=== PATIENT | female | born 1960 | race Two or more races ===

== ENCOUNTER 2025-02-11 16:01 | Emergency (ER) | payer OTHER, MEDICAID ==
[~2025-02-11] VITALS: Ht 170.2 cm; Wt 66.0 kg
--- NOTE | 2025-02-11 16:29 | ED.PDOC ---
HPI (NEURO) HPI Comments HPI Mandi 64 y.o female presents to the ED for a chief complaint of dizziness that started one week ago. Patient reports dizziness only presents on exertion/ambulation. patient denies any pain, fever, chills, chest pain, palpitations, or recent head injuries. Patient has no numbness or focal weaknesses. Risperidone Patient denies any allergies Vitals Temperature: 98.5 F Heart Rate:118 Blood pressure: 154/79 SPO2: 98% RA RR: 14 Past Medical History: COPD, HTN, Kidney disease, and Benign Brain tumor, bipolar Past Surgical History: Benign Brain tumor removal , 2002: DIZZINESS, 'LOSE MY BALANCE WHEN WALKING" HPI: Poor Historian. Dizziness episodes only when she ambulates for at least one-week. It is not able to describe it any further. Similar episodes in the past. Past Medical History: Past Surgical History: REVIEW OF SYSTEMS: CONSTITUTIONAL: Denies acute: fever, diaphoresis, chills, generalized weakness. HEAD: Denies acute: headache, photophobia Eyes: Denies acute: Double vision, vision loss, eye pain, eye discharge. EARS: Denies acute: tinnitus, hearing loss, ear discharge, ear pain, THROAT: Denies acute: sore throat, swelling, difficulty swallowing , pain with swallowing, change in voice. NECK: Denies acute: neck pain, neck swelling, stiff neck. HEART: Denies acute : chest pain, palpitations, LUNGS: Denies acute: SOB, wheezing, cough, hemoptysis ABDOMEN: Denies acute: abdominal pain, Nausea, Vomiting, diarrhea, melena , hematemesis, hematochezia SKIN: Denies acute: rash, redness, lesions, itchiness. EXTREMITIES: Denies acute: calf pain, numbness, tingling, weakness, denies pain in extremity. Denies acute: Low back pain. Neuro: Denies acute: focal neurological deficit, motor or sensory focal neurological deficit, tremors, seizure like activity, confusion, , change in mental status, loss of bowel or bladder function, cauda equina like symptoms. : Denies acute: dysuria, hematuria, flank pain, increase in urinary frequency. PSYCH: Denies acute: hallucination, suicidal ideation, homicidal ideation. FEMALE: Denies acute: abnormal vaginal bleeding, foul odor, unusual discharge. PHYSICAL EXAM: General: ----no----acute distress, awake and alert. Head: normocephalic, atraumatic. Neck: supple, trachea is midline, no swelling. Throat: Normal phonation. Eyes:, no erythema, no purulent discharge, no proptosis, no icterus. Heart: regular rate, regular rhythm, no significant murmur appreciated. Lungs: no apparent respiratory distress, Able to speak in full sentences. No wheezing, no rhonchi, no crackles. No stridors Clear to auscultation bilaterally. Abdomen: non tender to palpation, non distended, soft, no guarding, no rebound, + bowel sounds. Neuro: Awake, Alert, oriented to name, self, situation, follows commands GCS=15. Speech is normal. Skin: no petechia, no purpura, no cyanosis, non-pale, not jaundice. Lower extremities: --no - Pitting edema no deformity, no focal swelling, no calf TTP. Makes eye contact. moves all four extremities. Face: no apparent facial droop. Ambulating in the ED independently. PERRLA, EOM-I CN 2-12 are grossly intact, No nystagmus. No nuchal rigidity, Kernig's sign, Brudzinski's sign, no meningeal signs. 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 Was a procedure done?: No Differential Diagnosis (SZ) General Weakness: Anemia, CVA, Dehydration, Electrolyte imbalance, Encephalopathy, Guillain-[place], Hypoglycemia, Hypotension, Hypovolemia, Labyrinthitis, Meniere's disease, Myasthenia gravis, Myocardial infarction, Pulmonary embolus, Renal failure, Repiratory failure, TIA, VBI, Vertigo: central, Vertigo: peripheral, Vestibular neuronitis X-Ray, Labs, Meds, VS Vital Signs Date Time Temp Pulse Resp B/P (MAP) Pulse Ox O2 Delivery O2 Flow Rate FiO2 02/11/25 22:01 98.3 79 18 154/79 (104) 98 98.3 02/11/25 19:26 98.0 87 17 150/91 (110) 99 98.0 02/11/25 19:26 87 17 99 Room Air 02/11/25 16:33 98.5 118 14 154/79 (104) 98 98.5 Lab Test 02/11/25 21:16 02/11/25 17:27 02/11/25 16:37 Range/Units Lactic Acid Level 2.4 *H 2.7 *H 0.4-2.0 mmol/L Urine Color Light-yellow Yellow Urine Clarity Turbid H Clear Urine pH 5.5 5.0-9.0 Urine Specific [place] 1.009 1.001-1.035 Urine Protein 1+ H Negative Urine Ketones Negative Negative Urine Blood Trace H Negative /uL Urine Nitrite Negative Negative Urine Bilirubin Negative Negative Urine Urobilinogen Normal Negative mg/dL Urine Leukocyte Esterase 3+ Negative /uL Urine RBC 6 0 - 4 /hpf Urine Microscopic WBC 84 H 0-5 /HPF Urine Squamous Epithelial Cells Few <5 /hpf Urine Bacteria Many H None Seen /hpf Urine Glucose Normal Normal mg/dL White Blood Count 11.4 H 4.4-10.8 10^3/uL Red Blood Count 4.44 4.0-5.20 10^6/uL Hemoglobin 12.8 12.2-16.2 g/dL Hematocrit 38.3 36.0-46.0 % Mean Corpuscular Volume 86.3 80.0-100.0 fL Mean Corpuscular Hemoglobin 28.9 28.0-32.0 pg Mean Corpuscular Hemoglobin Concent 33.4 32.0-36.0 g/dL Red Cell Distribution Width 13.2 11.8-14.3 % Platelet Count 288 140-450 10^3/uL Mean Platelet Volume 8.8 6.9-10.8 fL Neutrophils (%) (Auto) 80.0 37.0-80.0 % Lymphocytes (%) (Auto) 13.3 10.0-50.0 % Monocytes (%) (Auto) 5.5 0.0-12.0 % Eosinophils (%) (Auto) 0.7 0.0-7.0 % Basophils (%) (Auto) 0.5 0.0-2.0 % Neutrophils # (Auto) 9.1 H 1.6-8.6 10 ^3/uL Lymphocytes # (Auto) 1.5 0.4-5.4 10 ^3/uL Monocytes # (Auto) 0.6 0-1.3 10 ^3/uL Eosinophils # (Auto) 0.1 0-0.8 10 ^3/uL Basophils # (Auto) 0.1 0-0.2 10 ^3/uL Nucleated Red Blood Cells 0.0 % Sodium Level 141 136-145 mmol/L Potassium Level 3.8 3.5-5.1 mmol/L Chloride Level 114 H 98-107 mmol/L Carbon Dioxide Level 16 L 20-31 mmol/L Anion Gap 11 5-15 Blood Urea Nitrogen 27 H 9-23 mg/dL Creatinine 1.87 H 0.550-1.02 mg/dL Glomerular Filtration Rate Calc 29 >90 mL/min BUN/Creatinine Ratio 14.4 10.0-20.0 Serum Glucose 232 H 74-106 mg/dL Calcium Level 9.4 8.7-10.4 mg/dL Total Bilirubin 0.3 0.2-1.0 mg/dL Aspartate Amino Transferase (AST) < 8 L 13-40 U/L Alanine Aminotransferase (ALT) 13 7-40 U/L Alkaline Phosphatase 99 46-116 U/L Troponin I High Sensitivity 8 </=34 ng/L Total Protein 6.9 5.7-8.2 g/dL Albumin 4.4 3.2-4.8 g/dL Current Medications Medications (Trade) Dose Ordered Sig/Fela Route Start Time Stop Time Status Last Admin Sodium Chloride 1,000 ml @ 1,000 mls/hr Q1H ONCE IV 02/11/25 18:15 02/11/25 19:14 DC 02/11/25 19:13 Ceftriaxone Sodium 50 ml @ 100 mls/hr ONCE ONCE IV 02/11/25 20:00 02/11/25 20:29 DC 02/11/25 20:22 Sodium Chloride 1,000 ml @ 1,000 mls/hr Q1H ONCE IV 02/11/25 20:00 02/11/25 20:59 DC 02/11/25 20:[address] [address] Ph: [phone] DIAGNOSTIC IMAGING Diagnostic Imaging Report : [id number] Signed PATIENT: JAMARCUS MENDOZA ACCT: [id number] UNIT: [id number] : 1960 LOC: ER ROOM / BED: / AGE / SEX: 64 / F ADM STATUS: REG ER SERVICE 1618 ORDERING PHYSICIAN: ALON MIMS DO PROCEDURE(s): HWOCT - HEAD WITHOUT CONTRAST REASON: DIZZINESS ORDER NUMBER(s): [id number], ACCESSION NUMBER(s): [id number] EXAM: CT HEAD WITHOUT CONTRAST HISTORY: DIZZINESS COMPARISON: None TECHNIQUE: Noncontrast axial CT images of the head were performed. Sagittal and coronal reformatted images were obtained. This CT exam was performed using 1 or more of the following dose reduction techniques: Automated exposure control, adjustment of the mA and/or kv according to patient size, or the use of iterative reconstruction techniques. Radiation Dose: CTDI volume is 56.89 mGy. Dose-length product is 1121.08 mGy*cm FINDINGS: There are postoperative changes of bilateral craniotomy. There is global brain atrophy. There is right frontal encephalomalacia. There are peripherally calcified extra-axial masses in the right frontal lobe measuring up to 3.5 cm axially (image 47, series 2) and left parietal lobe measuring up to 2.2 cm axially (image 52, series 2). There are thick dural calcifications anteriorly. No intracranial hemorrhage, midline shift, hydrocephalus, or evidence of acute large vessel infarct. Empty sella is incidentally noted. There is mild mucosal thickening of the left sphenoid sinus. The bilateral mastoid air cells and middle ear spaces are clear. There are old fractures of the bilateral lamina papyracea. No cranial fracture or scalp edema. IMPRESSION: 1. Postoperative changes of bilateral frontal craniotomy and right frontal lobe encephalomalacia. 2. Peripherally calcified extra-axial masses in the right frontal and parietal lobes as detailed above. It is uncertain if these may be due to old hematomas, meningiomas, or other etiology. Recommend neurosurgical consultation. 3. Old fractures of the bilateral orbital medial hall. 4. Empty sella. ATED BY: MARISA GUDINO MD DICTATED DATE/TIME: 02/11/251699 SIGNED BY: MARISA GUDINO MD SIGNED DATE/TIME: 02/11/251699 CC: Time of 1ST Reevaluation: 19:20 (As of this minute, urinalysis still pending. Patient has just started receiving fluids.) Reevaluation 1ST: Unchanged Time of 2ND Reevaluation: 20:52 (The case was discussed with the higher level of care [facility] ER team (HPI, physical exam, labs and diagnostic tests that were available at the time of disposition, ED course, treatment plan) on the phone. They agreed for us to transfer the patient to their ER for further evaluation and treatment for neurosurgical consultation. Dr. Luis. ) Patient Education/Counseling: Diagnosis, Treatment Family Education/Counseling: No Family Present Comments After the 2nd lactic acid returned elevated, patient received an additional 1 L of normal saline bolus. Patient was then transferred and we do not have a repeat lactic acid after the 2 L of normal saline. This was reported by the nurse to the receiving team. Patient presented with the above HPI.----dizziness--workup was initiated. patient was found with the above mentioned diagnosis. the following medications were ordered: please refer to order lists of meds and tests obtained by myself Dr. Mims. Patient ED course and VS have been stabilized. Patient has been reassessed in the ED and remained in a stable condition. Pertinent incidental findings were discussed with the patient and/or family. Patient/family voices understanding and is agreeable with plan. Patient has been observed in the ED adequate length of time to insure improvement/stability. Escalation of care considered: Consideration of escalation to observation or admission Patient was transferred to higher level of care for neurosurgical evaluation based on abnormal CT scan findings of the head. All the reports of any imaging studies that were ordered by myself were reviewed by myself. Departure 1 Departure Time of Disposition: 19:50 Impression: Primary Impression: UTI (urinary tract infection) Additional Impressions: Abnormal finding on CT scan Dizziness, nonspecific Disposition: 02 SHORT TERM HOSPITAL Admit to: Tele Condition: Guarded Discharged With: Self Critical Care Note Critical Care Time?: Yes (45 min-critical care time only) I personally scribed for ALON MIMS DO ([email or web address]) on 02/11/25 at 16:29. Electron ically submitted by Olivia Paz ([facility]). I personally scribed for ALON MIMS DO ([email or web address]) on 02/11/25 at 18:08. Electronically submitted by Olivia Paz ([facility]). I personally scribed for ALON MIMS DO ([email or web address]) on 02/11/25 at 21:26. Electronically submitted by James Bennett ([email or web address]). ALON MIMS DO Feb 11, 2025 16:29
[2025-02-11 16:54] LABS: Basophils # (auto) 0.1 10 ^3/uL (0-0.2); Basophils % (auto) 0.5 % (0.0-2.0); Eosinophils # (auto) 0.1 10 ^3/uL (0-0.8); Eosinophils % (auto) 0.7 % (0.0-7.0); Hematocrit 38.3 % (36.0-46.0); Hemoglobin 12.8 g/dL (12.2-16.2); Lymphocytes # (auto) 1.5 10 ^3/uL (0.4-5.4); Lymphocytes % (auto) 13.3 % (10.0-50.0); Mean Corpuscular Hemoglobin 28.9 pg (28.0-32.0); Mean Corpuscular Hgb Conc. 33.4 g/dL (32.0-36.0); Mean Corpuscular Volume 86.3 fL (80.0-100.0); Monocytes # (auto) 0.6 10 ^3/uL (0-1.3); Monocytes % (auto) 5.5 % (0.0-12.0); Neutrophils # (auto) 9.1 10 ^3/uL (1.6-8.6); Platelet Count (auto) 288 10^3/uL (140-450); Red Blood Cells 4.44 10^6/uL (4.0-5.20); Red Cell Distribution Width 13.2 % (11.8-14.3); White Blood Cell 11.4 10^3/uL (4.4-10.8)
--- NOTE | 2025-02-11 17:03 | DVH ---
EXAM: CT HEAD WITHOUT CONTRAST HISTORY: DIZZINESS COMPARISON: None TECHNIQUE: Noncontrast axial CT images of the head were performed. Sagittal and coronal reformatted i mages were obtained. This CT exam was performed using 1 or more of the following dose reduction techn iques: Automated exposure control, adjustment of the mA and/or kv according to patient size, or the u se of iterative reconstruction techniques. Radiation Dose: CTDI volume is 56.89 mGy. Dose-length product is 1121.08 mGy*cm FINDINGS: There are postoperative changes of bilateral craniotomy. There is global brain atrophy. There is righ t frontal encephalomalacia. There are peripherally calcified extra-axial masses in the right frontal lobe measuring up to 3.5 cm axially (image 47, series 2) and left parietal lobe measuring up to 2.2 cm axially (image 52, series 2). There are thick dural calcifications anteriorly. No intracranial hem orrhage, midline shift, hydrocephalus, or evidence of acute large vessel infarct. Empty sella is inci dentally noted. There is mild mucosal thickening of the left sphenoid sinus. The bilateral mastoid ai r cells and middle ear spaces are clear. There are old fractures of the bilateral lamina papyracea. N o cranial fracture or scalp edema. IMPRESSION: 1. Postoperative changes of bilateral frontal craniotomy and right frontal lobe encephalomalacia. 2. Peripherally calcified extra-axial masses in the right frontal and parietal lobes as detailed abov e. It is uncertain if these may be due to old hematomas, meningiomas, or other etiology. Recommend n eurosurgical consultation. 3. Old fractures of the bilateral orbital medial hall. 4. Empty sella.
[2025-02-11 17:09] LABS: Alanine Aminotransferase 13 U/L (7-40); Albumin 4.4 g/dL (3.2-4.8); Alkaline Phosphatase 99 U/L (46-116); Anion Gap 11 (5-15); BUN/Creatinine Ratio 14.4 (10.0-20.0); Calcium 9.4 mg/dL (8.7-10.4); Potassium 3.8 mmol/L (3.5-5.1); Sodium 141 mmol/L (136-145); Total Protein 6.9 g/dL (5.7-8.2)
[2025-02-11 17:10] LABS: Aspartate Aminotransferase < 8 U/L (13-40); Bilirubin, Total 0.3 mg/dL (0.2-1.0); Blood Urea Nitrogen 27 mg/dL (9-23); Carbon Dioxide 16 mmol/L (20-31); Chloride 114 mmol/L (98-107); Glucose 232 mg/dL (74-106)
[2025-02-11 17:19] LABS: Lactic Acid w/Reflex 2.7 mmol/L (0.4-2.0)
[2025-02-11] MEDS: SODIUM CHLORIDE 0.9% 1,000 ML IV ONE ×2 (19:13→20:21)
[2025-02-11 19:47] LABS: Urine Bacteria MANY /hpf (None Seen); Urine Blood TRACE /uL (Negative); Urine Clarity Turbid (Clear); Urine Color Light-Yellow (Yellow); Urine Protein, UAD 1+ (Negative); Urine Specific Gravity 1.009 (1.001-1.035); Urine Squamous Epithelial Cell FEW /hpf (<5); Urine Urobilinogen Normal (Negative); Urine WBC 84 /HPF (0-5); Urine pH 5.5 (5.0-9.0)
[2025-02-11] MEDS: cefTRIAXone 1GM/50ML D5W 50 ML IV ONE (20:22)
[2025-02-11 22:01] VITALS: BP 154/79; PULSE 79; RESP 18; TEMP 98.3; O2SAT 98
[2025-02-11] MEDS ORDERED: SODIUM CHLORIDE 0.9% 1,000 ML IV ONE (22:30)
== END 2025-02-11 19:34 | disposition short-term general hospital (02) ==
LOC: ER 16:04
DX: N39.0 Urinary tract infection, site not specified (principal); R42 Dizziness and giddiness; R93.0 Abnormal findings on diagnostic imaging of skull and head, not elsewhere classified; J44.9 Chronic obstructive pulmonary disease, unspecified; I12.9 Hypertensive chronic kidney disease with stage 1 through stage 4 chronic kidney disease, or unspecified chronic kidney disease; N18.9 Chronic kidney disease, unspecified; Z85.9 Personal history of malignant neoplasm, unspecified; Z98.890 Other specified postprocedural states
CPT/HCPCS: 36415; 70450; 80053; 81001; 83605; 84484; 85025; 96361; 96365; 99285; J0696; J7030

== ENCOUNTER 2025-03-13 17:38 | Emergency (ER) | payer OTHER, MEDICAID ==
[~2025-03-13] VITALS: Ht 170.2 cm; Wt 62.6 kg
[2025-03-13] MEDS: KETOROLAC TROMETH 60MG/2ML VIAL IM ONE (18:40)
--- NOTE | 2025-03-13 18:49 | DVH ---
CLINICAL INDICATION: Trauma/fall TECHNIQUE: XY R KNEE 3V XRAY Comparison: None FINDINGS/IMPRESSION: : There is no evidence of acute fracture or dislocation. Soft tissues are unremarkable. Osteopenia. Moderate tricompartmental degenerative change.
[2025-03-13] MEDS ORDERED: ACET500T58 PO (19:13)
[2025-03-13] MEDS ORDERED: IBUP-1454 PO (19:13)
--- NOTE | 2025-03-13 19:14 | ED.PDOC ---
Musculoskeletal HPI Comments This patient is a 64-year-old female who arrives to the ED today for evaluation of right knee pain concerns status post ground level fall approximately 6 hours ago. Patient states she was at home when she tripped outside and landed on her right knee. Patient denies any head trauma. Patient denies any blood loss. Patient is able to ambulate, but with difficulty. Vital signs were stable at arrival. Chief Complaint: Lower Extremity Time Seen by MD: 17:51 Primary Care Provider: UNKNOWN Reviewed Notes: Nurses Notes Allergies: Coded Allergies: NO KNOWN ALLERGIES (Unverified , 02/11/25) Information Source: Patient Mode of Arrival: Ambulatory Location: Right Extremity Location: Knee Timing: Hours Prehospital treatment: None Severity: Moderate Able to Move Extremity: Yes Bear Weight: Limited Pain: Moderate Hand Dominance: Right Mechanism: Blunt Trauma Circumstances: Fall Onset of Symptoms: After Trauma Symptoms: Swelling, Pain DVT Risk Factors: NONE Past Medical History PAST MEDICAL HISTORY: Cancer, CKF, COPD, HTN 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 Family History Family History: Reviewed,noncontributory to illness Social History Smoker: Cigarettes, Greater Than 1 Pack/Day Alcohol: Denies ETOH Use Drugs: Denies Drug Use Lives In: Home Constitutional: denies: chills, diaphoresis, fatigue, fever, malaise, sweats, weakness, others EENTM: denies: blurred vision, double vision, ear bleeding, ear discharge, ear drainage, ear pain, ear ringing, eye pain, eye redness, hearing loss, mouth pain, mouth swelling, nasal discharge, nose bleeding, nose congestion, nose pain, photophobia, tearing, throat pain, throat swelling, voice changes, others Respiratory: denies: cough, hemoptysis, orthopnea, SOB at rest, shortness of breath, SOB with excertion, stridor, wheezing, others Cardiovascular: denies: chest pain, dizzy spells, diaphoresis, Dyspnea on exertion, edema, irregular heart beat, left arm pain, lightheadedness, palpitations, PND, syncope, others Gastrointestinal: denies: abdomen distended, abdominal pain, blood streaked bowels, constipated, diarrhea, dysphagia, difficulty swallowing, hematemesis, melena, nausea, poor appetite, poor fluid intake, rectal bleeding, rectal pain, vomiting, others Genitourinary: denies: abnormal vagina bleeding, burning, dyspareunia, dysuria, flank pain, frequency, hematuria, incontinence, pain, , vagina discharge, urgency, others Neurological: denies: dizziness, fainting, headache, left sided numbness, left sided weakness, numbness, paresthesia, pre-existing deficit, right sided numbness, right sided weakness, seizure, speech problems, tingling, tremors, weakness, others Musculoskeletal: reports: others (Right knee pain); denies: back pain, gout, joint pain, joint swelling, muscle pain, muscle stiffness, neck pain Integumetry: denies: bruises, change in color, change in hair/nails, dryness, laceration, lesions, lumps, rash, wounds, others Allergic/Immunocompromised: denies: Difficulty Healing, Frequent Infections, Hives, Itching, others Hematologic/Lymphatic: denies: anemia, blood clots, easy bleeding, easy bruising, swollen glands, others Endocrine: denies: excessive hunger, excessive sweating, excessive thirst, excessive urination, flushing, intolerance to cold, intolerance to heat, unexplained weight gain, unexplained weight loss, others Psychiatric: denies: anxiety, bipolar disorder, depression, hopeless, panic disorder, schizophrenia, sleepless, suicidal, others Physical Exam General Appearance: Moderate Distress ([id number] distress due to right knee pain concerns.), Normal HEENT: Normal ENT Inspection, Pharynx Normal, TMs Normal Neck: Full Range of Motion, Non-Tender, Normal, Normal Inspection Respiratory: Chest Non-Tender, Lungs Clear, No Accessory Muscle Use, No Respiratory Distress, Normal Breath Sounds Cardiovascular: No Edema, No JVD, No Murmur, No Gallop, Normal Peripheral Pulses, Regular Rate/Rhythm Breast Exam: Deferred Gastrointestinal: No Organomegaly, Non Tender, No Pulsatile Mass, Normal Bowel Sounds, Soft Genitalia: Deferred Pelvic: Deferred Rectal: Deferred Extremities: Other (Right knee is diffusely tender to palpation throughout the anterior aspect extending into the tibial tuberosity region. Mild edema noted. Negative drawer sign. Moderate reduced range of motion. Patient can bear weight but with difficulties. Distal neurovascularly intact.) Neurologic: Alert, No Motor Deficits, Normal Affect, Normal Mood, No Sensory Deficits Cerebellar Function: Normal Reflexes: Normal Skin: Dry, Normal Color, Warm Lymphatic: No Adenopathy Was a procedure done? Was a procedure done?: No Differential Diagnosis EXT Differential Diagnosis: Fracture, Sprain, Dislocation, Contusion X-Ray, Labs, Meds, VS Vital Signs Date Time Temp Pulse Resp B/P (MAP) Pulse Ox O2 Delivery O2 Flow Rate FiO2 03/13/25 18:25 98.2 97 18 117/74 (88) 98 98.2 Current Medications Medications (Trade) Dose Ordered Sig/Fela Route Start Time Stop Time Status Last Admin Ketorolac Tromethamine (Toradol Injection) 30 mg ONCE ONCE IM 03/13/25 18:15 03/13/25 18:16 DC 03/13/25 18:40 X-Ray, Labs, Meds, VS Comment All studies performed in the ED were evaluated by me personally. No acute fractures noted. Patient does have some degeneration of that knee. Advised patient utilize Devan wrap and crutches as long as they aid in the healing process, pain medication as needed and follow up with the primary care provider for discussions related to possible internal knee concerns. Time of 1ST Reevaluation: 19:12 Reevaluation 1ST: Improved Consultation: PCP Patient Education/Counseling: Diagnosis, Treatment Family Education/Counseling: Diagnosis, Treatment Sepsis Recent Procedure: No On Antibiotic Therapy: No Respiratory Rate >20: No Heart Rate >90: No Temp<36 C (96.8 F) or >38.3 C: No SBP <90 or MAP <65 mmHG: No New Acute Mental Status Change: No Is the patient on CPAP, BIPAP,: No IV fluid given: No Departure 1 Departure Time of Disposition: 19:13 Impression: Primary Impression: Contusion of right knee Disposition: HOME / SELF CARE / HOMELESS Condition: Stable Additional Instructions: Advised pain medication as needed for symptomatic relief as well as ice therapy. Patient can utilize Devan wrap and crutches as long as it aid in the healing process. e-Prescriptions Acetaminophen (Acetaminophen) 500 Mg Tab 500 MG PO Q4HP PRN, #30 TAB Prov: SANDY DAI PAC 03/13/25 Ibuprofen (Ibuprofen) 600 Mg Tab 1 TAB PO Q6HP PRN, #20 TAB Prov: SANDY DAI PAC 03/13/25 Discharged With: Self, Friend Critical Care Note Critical Care Time?: No Stability Stability form required: No Heart Score Heart Score: Heart Score Response (Comments) Value History N/A 0 EKG N/A 0 Age N/A 0 Risk Factors N/A 0 Troponin N/A 0 Total 0 SANDY DAI PAC Mar 13, 2025 19:14
[2025-03-13 19:25] VITALS: BP 108/76; PULSE 82; RESP 18; TEMP 97.6; O2SAT 97
== END 2025-03-13 19:42 | disposition home or self-care (01) ==
LOC: ER 17:38
DX: S80.01XA Contusion of right knee, initial encounter (principal); I12.9 Hypertensive chronic kidney disease with stage 1 through stage 4 chronic kidney disease, or unspecified chronic kidney disease; N18.9 Chronic kidney disease, unspecified; F17.210 Nicotine dependence, cigarettes, uncomplicated; J44.9 Chronic obstructive pulmonary disease, unspecified; W01.0XXA Fall on same level from slipping, tripping and stumbling without subsequent striking against object, initial encounter; Y93.89 Activity, other specified; Y92.098 Other place in other non-institutional residence as the place of occurrence of the external cause; Y99.8 Other external cause status
CPT/HCPCS: 73562; 96372; 99283; J1885

== ENCOUNTER 2025-03-14 12:23 | Inpatient (IN) | payer OTHER, MEDICAID ==
[~2025-03-14] VITALS: Ht 170.2 cm; Wt 64.0 kg
[~2025-03-14 12:23] MED LIST: ACET500T58 PO; IBUP-1454 PO
--- NOTE | 2025-03-14 12:43 | ED.PDOC ---
HPI (NEURO) HPI Comments 64 y.o female with PMHx of COPD, HTN, BPD, HLD and thyroid disease, presents to the ED for a chief complaint of dizziness associated with weakness that started one day ago. Patient presents drowsy upon triage assessment, is a poor historian and unable to tells us much about her dizziness episode. Patient does mention being seen yesterday at this ED for right knee pain s/p fall, states she hit her head but did not have a CT head scan done then. Today she denies any nausea, vomiting, fever, chills. Time Seen by MD: 12:36 Primary Care Provider: UNKNOWN Reviewed Notes: Nurses Notes, Medications, Allergies Information Source: Patient Mode of Arrival: Ambulatory Severity: Moderate Headache Severity: Other Timing: Days (1) Duration: Since onset Headache Location: Generalized Onset: At rest Circumstances: Spontaneous Modifying factors: Nothing Past Medical History PAST MEDICAL HISTORY: Cancer, CKF, COPD, HTN MANAGER PERIOPERATIVE History: No Pertinent MANAGER PERIOPERATIVE History Family History Family History: Reviewed,noncontributory to illness Social History Smoker: Cigarettes, Greater Than 1 Pack/Day Alcohol: Denies ETOH Use Drugs: Denies Drug Use Lives In: Home Constitutional: reports: weakness; denies: chills, diaphoresis, fatigue, fever, malaise, sweats, others EENTM: denies: blurred vision, double vision, ear bleeding, ear discharge, ear drainage, ear pain, ear ringing, eye pain, eye redness, hearing loss, mouth pain, mouth swelling, nasal discharge, nose bleeding, nose congestion, nose pain, photophobia, tearing, throat pain, throat swelling, voice changes, others Respiratory: denies: cough, hemoptysis, orthopnea, SOB at rest, shortness of breath, SOB with excertion, stridor, wheezing, others Cardiovascular: denies: chest pain, dizzy spells, diaphoresis, Dyspnea on exertion, edema, irregular heart beat, left arm pain, lightheadedness, palpitations, PND, syncope, others Gastrointestinal: denies: abdomen distended, abdominal pain, blood streaked bowels, constipated, diarrhea, dysphagia, difficulty swallowing, hematemesis, m chandana, nausea, poor appetite, poor fluid intake, rectal bleeding, rectal pain, vomiting, others Genitourinary: denies: abnormal vagina bleeding, burning, dyspareunia, dysuria, flank pain, frequency, hematuria, incontinence, pain, , vagina discharge, urgency, others Neurological: reports: dizziness, headache; denies: fainting, left sided numbness, left sided weakness, numbness, paresthesia, pre-existing deficit, rig ht sided numbness, right sided weakness, seizure, speech problems, tingling, tremors, weakness, others Musculoskeletal: denies: back pain, gout, joint pain, joint swelling, muscle pain, muscle stiffness, neck pain, others Integumetry: denies: bruises, change in color, change in hair/nails, dryness, laceration, lesions, lumps, rash, wounds, others Allergic/Immunocompromised: denies: Difficulty Healing, Frequent Infections, Hives, Itching, others Hematologic/Lymphatic: denies: anemia, blood clots, easy bleeding, easy bruising, swollen glands, others Endocrine: denies: excessive hunger, excessive sweating, excessive thirst, excessive urination, flushing, intolerance to cold, intolerance to heat, unexplained weight gain, unexplained weight loss, others Psychiatric: denies: anxiety, bipolar disorder, depression, hopeless, panic disorder, schizophrenia, sleepless, suicidal, others All Other Systems: Reviewed and Negative Physical Exam General Appearance: Moderate Distress HEENT: Normal ENT Inspection, Pharynx Normal, TMs Normal Neck: Full Range of Motion, Non-Tender, Normal, Normal Inspection Respiratory: Chest Non-Tender, Lungs Clear, No Accessory Muscle Use, No Respiratory Distress, Normal Breath Sounds Cardiovascular: No Edema, No JVD, No Murmur, No Gallop, Normal Peripheral Pulses, Regular Rate/Rhythm Breast Exam: Deferred Gastrointestinal: No Organomegaly, Non Tender, No Pulsatile Mass, Normal Bowel Sounds, Soft Genitalia: Deferred Pelvic: Deferred Rectal: Deferred Extremities: No calf tenderness, Normal capillary refill, No pedal edema Musculoskeletal : Apperance: Normal Neurologic: electronic technologist II-XII nml as Tested, Motor Weakness, No Sensory Deficits, Other (Lethargy) Cerebellar Function: Unable to Test Reflexes: Normal Skin: Dry, Pallor, Warm Lymphatic: No Adenopathy EKG EKG : Pulse Rate (adult): 3 [place]: Normal Cardiac Rhythm: NSR Block: None ST: Nonsp Was a procedure done? Was a procedure done?: No Differential Diagnosis (SZ) Seizure: N/A General Weakness: CVA, Dehydration, Electrolyte imbalance, TIA, VBI, Vertigo: central, Vertigo: peripheral, Vestibular neuronitis X-Ray, Labs, Meds, VS Vital Signs Date Time Temp Pulse Resp B/P (MAP) Pulse Ox O2 Delivery O2 Flow Rate FiO2 03/14/25 14:03 57 19 99 Room Air* 0 21 03/14/25 13:27 98.6 61 26 124/57 (79) 100 98.6 03/14/25 12:48 3 03/14/25 12:45 73 03/14/25 12:36 97.9 78 16 120/68 (85) 97 97.9 Lab Test 03/14/25 13:17 Range/Units White Blood Count 8.5 4.4-10.8 10^3/uL Red Blood Count 4.13 4.0-5.20 10^6/uL Hemoglobin 12.0 L 12.2-16.2 g/dL Hematocrit 36.0 36.0-46.0 % Mean Corpuscular Volume 87.3 80.0-100.0 fL Mean Corpuscular Hemoglobin 29.0 28.0-32.0 pg Mean Corpuscular Hemoglobin Concent 33.2 32.0-36.0 g/dL Red Cell Distribution Width 13.8 11.8-14.3 % Platelet Count 226 140-450 10^3/uL Mean Platelet Volume 8.5 6.9-10.8 fL Neutrophils (%) (Auto) 75.6 37.0-80.0 % Lymphocytes (%) (Auto) 15.9 10.0-50.0 % Monocytes (%) (Auto) 4.5 0.0-12.0 % Eosinophils (%) (Auto) 3.7 0.0-7.0 % Basophils (%) (Auto) 0.3 0.0-2.0 % Neutrophils # (Auto) 6.5 1.6-8.6 10 ^3/uL Lymphocytes # (Auto) 1.4 0.4-5.4 10 ^3/uL Monocytes # (Auto) 0.4 0-1.3 10 ^3/uL Eosinophils # (Auto) 0.3 0-0.8 10 ^3/uL Basophils # (Auto) 0 0-0.2 10 ^3/uL Nucleated Red Blood Cells 0.0 % Prothrombin Time 10.8 9.3-11.8 sec Prothrombin Time INR 1.02 0.9-1.15 Activated Partial Thromboplast Time 27.5 24.5-34.5 SEC Sodium Level 147 H 136-145 mmol/L Potassium Level 4.2 3.5-5.1 mmol/L Chloride Level 119 H 98-107 mmol/L Carbon Dioxide Level 19 L 20-31 mmol/L Anion Gap 9 5-15 Blood Urea Nitrogen 31 H 9-23 mg/dL Creatinine 2.11 H 0.550-1.02 mg/dL Glomerular Filtration Rate Calc 25 >90 mL/min BUN/Creatinine Ratio 14.7 10.0-20.0 Serum Glucose 111 H 74-106 mg/dL Calcium Level 9.6 8.7-10.4 mg/dL Exam: CT HEAD WITHOUT CONTRAST Impression: 1. No acute intracranial abnormality. If symptoms persist or worsen, recommend MRI for further evaluation. 2. Similar bifrontal craniotomy postsurgical changes and right frontal encephalomalacia. 3. Unchanged peripherally calcified extra-axial lesions. The patient's CBC is within normal limits The chemistry panel is within normal limits The chemistry panel shows a BUN of 31 and a creatinine of 2.11 The patient's CO2 level is 19 The anion gap is within normal range At this time, the patient being admitted to hospitalist Images Reviewed?: Images reviewed and evaluated by me Time of 1ST Reevaluation: 12:43 Reevaluation 1ST: Unchanged Patient Education/Counseling: Diagnosis, Treatment, Prognosis Family Education/Counseling: No Family Present Departure 1 Departure Time of Disposition: 15:12 Impression: Primary Impression: Autonomic dysfunction Disposition: 09 ADMITTED INPATIENT Admit to: [facility] Condition: Fair Critical Care Note Critical Care Time?: No Stability Stability form required: Yes Unstable for transfer: Telemetry monitoring (Telemetry monitoring required), ED Physician Assesment (Clinical assesment) I personally scribed for DELGADO WHITFIELD MD ([email or web address]) on 03/14/25 at 12:43. Electronically submitted by Olivia Paz ([facility]). I personally scribed for DELGADO WHITFIELD MD ([email or web address]) on 03/14/25 at 13:58. Electronically submitted by Olivia Paz ([facility]). DELGADO WHITFIELD MD Mar 14, 2025 12:43
[2025-03-14 13:25] LABS: Hematocrit 36.0 % (36.0-46.0); Hemoglobin 12.0 g/dL (12.2-16.2); Mean Corpuscular Hemoglobin 29.0 pg (28.0-32.0); Mean Corpuscular Volume 87.3 fL (80.0-100.0); Nucleated Red Blood Cells % 0.0 %
[2025-03-14 13:34] LABS: Potassium 4.2 mmol/L (3.5-5.1)
[2025-03-14 13:35] LABS: Anion Gap 9 (5-15); Calcium 9.6 mg/dL (8.7-10.4)
[2025-03-14 13:38] LABS: Carbon Dioxide 19 mmol/L (20-31); Chloride 119 mmol/L (98-107); Sodium 147 mmol/L (136-145)
[2025-03-14 13:40] LABS: BUN/Creatinine Ratio 14.7 (10.0-20.0); INR 1.02 (0.9-1.15); Partial Thromboplastin Time 27.5 SEC (24.5-34.5); Prothrombin Time 10.8 sec (9.3-11.8)
--- NOTE | 2025-03-14 13:42 | DVH ---
Exam: CT HEAD WITHOUT CONTRAST History: dizziness Technique: [address] images through the posterior fossa and the supratentorial compart ment were acquired without contrast and imaged using soft tissue and bone algorithms. RADIATION DOSE: DLP 1023.27 mGy.cm; CTDI vol 56.75 mGy. Comparison: CT HEAD WITHOUT CONTRAST on DOS: 02/11/25 Findings: There is no evidence of an intracranial hemorrhage, acute large vessel infarct, mass effect, or midli ne shift. Bifrontal craniotomy with associated postsurgical changes and right frontal encephalomalacia. Anterio r dural calcifications. Unchanged peripherally calcified extra-axial lesions in the right frontal and left parietal lobes. There is mild cerebral atrophy. No significant calcification of the carotid siphons. The orbits, paranasal sinuses, sella, middle ears, and mastoids are unremarkable. The superficial soft tissues are within normal limits. Impression: 1. No acute intracranial abnormality. If symptoms persist or worsen, recommend MRI for further evalua tion. 2. Similar bifrontal craniotomy postsurgical changes and right frontal encephalomalacia. 3. Unchanged peripherally calcified extra-axial lesions.
[2025-03-14 13:44] LABS: Blood Urea Nitrogen 31 mg/dL (9-23); Glucose 111 mg/dL (74-106)
[2025-03-14 14:03] VITALS: PULSE 57; RESP 19; O2SAT 99
[2025-03-14 17:06] LABS: Urine Budding Yeast OCCASIONAL /hpf (None Seen); Urine Protein, UAD Negative (Negative)
[2025-03-14 19:20] VITALS: PULSE 61; RESP 14; O2SAT 99
[2025-03-14] MEDS ORDERED: MORPHINE SULFATE INJ 2 MG/ml SYRG IV PRN ×2 (22:45→23:00)
[2025-03-14] MEDS ORDERED: NITROGLYCERIN 0.4 MG SL TAB SL PRN ×2 (22:45→23:00)
--- NOTE | 2025-03-14 23:00 | DVHHP2 ---
History of Present Illness History of Present Illness This is a 64-year-old female with past medical history of CKD, COPD not on home oxygen, HTN came to ED with a complain of feeling dizziness associated with w eakness for last 2 days but it was worsen since noon. Does not associated with nausea, vomiting, vertigo, chest pain, SOB, headache, muscle out and not associated any prodromal factors. As per ED physician, patient history of fall yesterday but not follow-up with ER her PCP. As per patient she had brain tumor diagnosed 2002 and surgery done in [facility]. Patient currently on bed and denies any acute symptoms . PAST MEDICAL HISTORY: Brain tumor, COPD, HTN Family History: Reviewed,noncontributory to illness Smoker: Cigarettes, Greater Than 1 Pack/Day Alcohol: Denies ETOH Use Drugs: Denies Drug Use Lives In: Home Medicine: Ibuprofen 600 mg p.o. as needed, pantoprazole 40 mg p.o. daily, risperidone 2 mg b.i.d., gabapentin 100 mg, levetiracetam 750 mg, benztropine 1 mg Allergy: No known allergies PCP : Unknown Review of Systems Constitutional: Yes: Weakness; No: Fever, Chills, Sweats, Malaise, Other Eyes: No: Pain, Vision change, Conjunctivae inflammation, Eyelid inflammation, Other, Redness ENT: No: Ear pain, Ear discharge, Nose pain, Nose discharge, Nose congestion, Mouth pain, Mouth swelling, Throat pain, Throat swelling, Other Respiratory: No: Cough, Dry, Shortness of breath, SOB with excertion, Wheezing, Hemoptysis, Pleuritic Pain, Sputum, Wheezing, Other Cardiovascular: No: Chest Pain, Palpitations, Orthopnea, Paroxysmal Noc. Dyspnea, Edema, Lt Headedness, Other Gastrointestinal: No: Nausea, Vomiting, Abdominal Pain, Diarrhea, Constipation, Melena, Hematochezia, Other Genitourinary: No Dysuria, No Frequency, No Incontinence, No Hematuria, No Retention, No Other Musculoskeletal: No: other, neck pain, shoulder pain, arm pain, back pain, hand pain, leg pain, foot pain Skin: No: Rash, Lesions, Jaundice, Bruising, Other Neurological: No: Weakness, Numbness, Incoordination, Change in speech, Confusion, Seizures, Other Allergies: Coded Allergies: NO KNOWN ALLERGIES (Unverified , 02/11/25) Exam Vital Signs Vital Signs Date Time Temp Pulse Resp B/P (MAP) Pulse Ox O2 Delivery O2 Flow Rate FiO2 03/14/25 21:00 64 16 125/59 (81) 98 03/14/25 19:20 Room Air* 0 21 03/14/25 19:20 99.1 99.1 General Appearance: Alert, Oriented X3 HEENT: Atraumatic, PERRLA Respiratory: Clear to auscultation Cardiovascular: Regular rate, Normal S1, Normal S2 Abdominal: Normal bowel sounds, Soft, No tenderness, No hepatospenomegaly Extremities: No clubbing, No cyanosis, No edema Skin: No rashes, No breakdown Neuro: Normal speech Labs/Xrays Labs Test 03/14/25 16:21 03/14/25 13:17 Range/Units Urine Color Light-yellow Yellow Urine Clarity Clear Clear Urine pH 5.0 5.0-9.0 Urine Specific Anthony 1.015 1.001-1.035 Urine Protein Negative Negative Urine Ketones Negative Negative Urine Blood Negative Negative /uL Urine Nitrite Negative Negative Urine Bilirubin Negative Negative Urine Urobilinogen Normal Negative mg/dL Urine Leukocyte Esterase 3+ Negative /uL Urine RBC 3 0 - 4 /hpf Urine Microscopic WBC 15 H 0-5 /HPF Urine Squamous Epithelial Cells Few <5 /hpf Urine Bacteria None seen None Seen /hpf Urine Hyaline Casts Few 0 - 2 /lpf Urine Mucus Few None Seen Urine Yeast (Budding) Occasional None Seen /hpf Urine Glucose Normal Normal mg/dL White Blood Count 8.5 4.4-10.8 10^3/uL Red Blood Count 4.13 4.0-5.20 10^6/uL Hemoglobin 12.0 L 12.2-16.2 g/dL Hematocrit 36.0 36.0-46.0 % Mean Corpuscular Volume 87.3 80.0-100.0 fL Mean Corpuscular Hemoglobin 29.0 28.0-32.0 pg Mean Corpuscular Hemoglobin Concent 33.2 32.0-36.0 g/dL Red Cell Distribution Width 13.8 11.8-14.3 % Platelet Count 226 140-450 10^3/uL Mean Platelet Volume 8.5 6.9-10.8 fL Neutrophils (%) (Auto) 75.6 37.0-80.0 % Lymphocytes (%) (Auto) 15.9 10.0-50.0 % Monocytes (%) (Auto) 4.5 0.0-12.0 % Eosinophils (%) (Auto) 3.7 0.0-7.0 % Basophils (%) (Auto) 0.3 0.0-2.0 % Neutrophils # (Auto) 6.5 1.6-8.6 10 ^3/uL Lymphocytes # (Auto) 1.4 0.4-5.4 10 ^3/uL Monocytes # (Auto) 0.4 0-1.3 10 ^3/uL Eosinophils # (Auto) 0.3 0-0.8 10 ^3/uL Basophils # (Auto) 0 0-0.2 10 ^3/uL Nucleated Red Blood Cells 0.0 % Prothrombin Time 10.8 9.3-11.8 sec Prothrombin Time INR 1.02 0.9-1.15 Activated Partial Thromboplast Time 27.5 24.5-34.5 SEC Sodium Level 147 H 136-145 mmol/L Potassium Level 4.2 3.5-5.1 mmol/L Chloride Level 119 H 98-107 mmol/L Carbon Dioxide Level 19 L 20-31 mmol/L Anion Gap 9 5-15 Blood Urea Nitrogen 31 H 9-23 mg/dL Creatinine 2.11 H 0.550-1.02 mg/dL Glomerular Filtration Rate Calc 25 >90 mL/min BUN/Creatinine Ratio 14.7 10.0-20.0 Serum Glucose 111 H 74-106 mg/dL Calcium Level 9.6 8.7-10.4 mg/dL Assessment/Plan Assessment/Plan # JERROD due to severe dehydration -Patient came to ER with dizziness likely dehydration -Serum creatinine 2.11, baseline creatinine 1.87 -Calculate FENa -Urine sodium level, protein creatinine ratio order -lactic acid level ordered -Continue 0.45 % NS @ 100 cc/hours -Monitor BMP -Encourage oral hydration -Avoid nephrotoxic drugs. #Dizziness rule out orthostatic hypotension, vasovagal. -Patient came to the ER with dizziness -History of fall yesterday -CT HEAD W/o contrast : No acute intracranial abnormality. If symptoms persist or worsen, recommend MRI for further evaluation. Similar bifrontal craniotomy postsurgical changes and right frontal encephalomalacia. Unchanged peripherally calcified extra-axial lesions. -Monitor orthostatic hypotension -Medication reconciliation # History of BRAIN tumor status post surgery -Brain tumor diagnosed 2002 status post surgery -Continue levetiracetam 750 mg b.i.d. -Continue risperidone 2 mg b.i.d. -Benztropine 1 mg p.o. daily # Essential hypertension --DASH diet -monitor blood pressure # COPD not on oxygen -current smoker ,pack per day # diet: Cardiac diet # GI prophylaxis: Pantoprazole 40 mg p.o. daily # DVT prophylaxis: Sequential compression device. Due to history of recent fall. # please call pharmacy for medication reconciliation. Goals of care discussion, more than 27 minute spent. Full code status Was discussed with Dr. Dang Plan discussed with: Patient, Other (Nurse) My Orders Orders - MERCEDES TERRY Procedure Category Date Status Time Admit ADMIT 03/14/25 Verified 22:42 Nitroglycerin PHA 03/14/25 Verified Sublingual (Ntrostat 22:45 Morphine Sulfate PHA 03/14/25 Verified Injection 22:45 Date of Service: Mar 14, 2025 Billing Provider: NEEL DANG MD Common Visit Codes: [id number] INP/OBS CARE (HIGH) Secondary Visit Codes: [id number] CONF W/O PAT BY PHYS, [id number] CARE PLAN 30 MINUTES MERCEDES TERRY Mar 14, 2025 23:00
[2025-03-15] VITALS (8 sets, daily range): BP systolic 108–130; BP diastolic 56–73; PULSE 55–70; RESP 15–19; TEMP 97.7–98.2; O2SAT 97–99
[2025-03-15] MEDS: SOD CHL 0.45% 1,000 ML IV SCH (02:52)
[2025-03-15] MEDS ORDERED: RISP2TAB62 PO (03:47)
[2025-03-15] MEDS ORDERED: DOCU-94 PO (03:47)
[2025-03-15 04:13] LABS: Protein, Urine 21.4 mg/dL (1-14)
[2025-03-15] MEDS: PANTOPRAZOLE 40 MG TAB PO SCH (05:09)
[2025-03-15 07:39] LABS: Alkaline Phosphatase 73 U/L (46-116); Anion Gap 9 (5-15); BUN/Creatinine Ratio 12.7 (10.0-20.0); Calcium 9.4 mg/dL (8.7-10.4); Potassium 4.6 mmol/L (3.5-5.1); Triglycerides 107 mg/dL (< 150)
[2025-03-15 07:40] LABS: Total Protein 5.8 g/dL (5.7-8.2)
[2025-03-15 07:41] LABS: Albumin 3.5 g/dL (3.2-4.8); Cholesterol 88 mg/dL (< 200)
[2025-03-15 07:46] LABS: Alanine Aminotransferase < 9 U/L (7-40); Bilirubin, Total 0.2 mg/dL (0.2-1.0); Blood Urea Nitrogen 26 mg/dL (9-23); Carbon Dioxide 17 mmol/L (20-31); Chloride 119 mmol/L (98-107); Glucose 143 mg/dL (74-106); HDL Cholesterol 31 mg/dL (40-59); Sodium 145 mmol/L (136-145)
--- NOTE | 2025-03-15 08:11 | DVH ---
CHEST RADIOGRAPH Indication: r/o cardiomegaly Technique: Single frontal view of the chest was obtained Comparison: None FINDINGS: Lines and Tubes: None Lungs: No focal consolidation. Pleura: No effusion. No pneumothorax. Cardiomediastinal contours: Unremarkable Bones: No acute osseous abnormality. IMPRESSION: 1. No acute cardiopulmonary disease. No cardiomegaly.
[2025-03-15] MEDS: levETIRAcetam 500 MG TAB PO SCH (09:51)
[2025-03-15] MEDS: risperiDONE 1 MG TAB PO SCH (09:51)
[2025-03-15] MEDS: BENZTROPINE MESY 0.5 MG TAB PO SCH (09:52)
[2025-03-15] MEDS: cefTRIAXone 1GM/50ML D5W 50 ML IV SCH (10:44)
--- NOTE | 2025-03-15 17:26 | DVHPNRES ---
Progress Note Date Seen: Mar 15, 2025 Resident Creating Document: JSOE SEE RESIDENT Has the PT tested + for MRSA If YES, has PT been informed?: No Medical Necessity Reason Pt with a Central, PICC or Fol: No Subjective Review of Systems This is a 64-year-old female with past medical history of CKD, COPD not on home oxygen, HTN came to ED with a complain of feeling dizziness associated with weakness for last 2 days but it was worsen since noon. Does not associated with nausea, vomiting, vertigo, chest pain, SOB, headache, muscle out and not associated any prodromal factors. As per ED physician, patient history of fall yesterday but not follow-up with ER her PCP. As per patient she had brain tumor diagnosed 2002 and surgery done in [facility]. Patient currently on bed and denies any acute symptoms. 03/15/25: Patient was seen at bedside, patient reports feeling better. Today, urine culture was sent due to positive UA. Also, ceftriaxone 1 gr was initiated. Patient will be follow up closely. Review of Systems Constitutional: Yes: Weakness; No: Fever, Chills, Sweats, Malaise, Other Eyes: No: Pain, Vision change, Conjunctivae inflammation, Eyelid inflammation, Other, Redness ENT: No: Ear pain, Ear discharge, Nose pain, Nose discharge, Nose congestion, Mouth pain, Mouth swelling, Throat pain, Throat swelling, Other Respiratory: No: Cough, Dry, Shortness of breath, SOB with excertion, Wheezing, Hemoptysis, Pleuritic Pain, Sputum, Wheezing, Other Cardiovascular: No: Chest Pain, Palpitations, Orthopnea, Paroxysmal Noc. Dyspnea, Edema, Lt Headedness, Other Gastrointestinal: No: Nausea, Vomiting, Abdominal Pain, Diarrhea, Constipation, Melena, Hematochezia, Other Genitourinary: No Dysuria, No Frequency, No Incontinence, No Hematuria, No Retention, No Other Musculoskeletal: No: other, neck pain, shoulder pain, arm pain, back pain, hand pain, leg pain, foot pain Skin: No: Rash, Lesions, Jaundice, Bruising, Other Neurological: No: Weakness, Numbness, Incoordination, Change in speech, Confusion, Seizures, Other Allergies: UNK Allergies Physical Exam General Appearance: Alert, Oriented X3 HEENT: Atraumatic, PERRLA Respiratory: Clear to auscultation Cardiovascular: Regular rate, Normal S1, Normal S2 Abdominal: Normal bowel sounds, Soft, No tenderness, No hepatospenomegaly Extremities: No clubbing, No cyanosis, No edema Skin: No rashes, No breakdown Neuro: Normal speech, intact cranial nerves with no focal deficit. Objective vital signs Vital Sign Date Time Temp Pulse Resp B/P (MAP) Pulse Ox O2 Delivery O2 Flow Rate FiO2 03/15/25 09:00 98.2 70 15 108/70 (83) 99 98.2 03/15/25 08:15 Room Air* 0 21 Total Intake and Output 03/14/25 03/14/25 03/15/25 15:00 23:00 07:00 Intake Total 800 ml Balance 800 ml medications Current Medications Medications Dose Ordered Sig/Fela Route Start Time Stop Time Status Last Admin Dose Admin Morphine Sulfate 2 mg Q30M PRN IV 03/14/25 23:00 Nitroglycerin 0.4 mg Q5MINP PRN SL 03/14/25 23:00 Sodium Chloride 1,000 ml @ 100 mls/hr Q10H IV 03/15/25 01:45 03/15/25 10:45 100 MLS/HR Pantoprazole Sodium 40 mg DAILY@0600 PO 03/15/25 06:00 03/15/25 05:09 40 MG Risperidone 2 mg BID PO 03/15/25 10:00 03/15/25 09:51 2 MG Levetiracetam 750 mg BID PO 03/15/25 10:00 03/15/25 09:51 750 MG Benztropine Mesylate 1 mg DAILY PO 03/15/25 10:00 03/15/25 09:52 1 MG Ceftriaxone Sodium 50 ml @ 100 mls/hr DAILY@09 IV 03/15/25 09:45 03/15/25 10:44 100 MLS/HR laboratory and microbiology Laboratory Tests 03/15/25 06:29 03/14/25 13:17 Test 03/15/25 06:29 Range/Units Serum Glucose 143 H 74-106 mg/dL Problem List/Assessment/Plan Problem List/Assessment/Plan Assessment/Plan # JERROD due to severe dehydration -Patient came to ER with dizziness likely dehydration -Serum creatinine 2.11, baseline creatinine 1.87 -Calculated FENa 2.1 -Continue 0.45 % NS @ 100 cc/hours -Monitor BMP -Encourage oral hydration -Avoid nephrotoxic drugs. #Dizziness rule out orthostatic hypotension, vasovagal. -Patient came to the ER with dizziness -History of fall yesterday -CT HEAD W/o contrast : No acute intracranial abnormality. If symptoms persist or worsen, recommend MRI for further evaluation. Similar bifrontal craniotomy postsurgical changes and right frontal encephalomalacia. Unchanged peripherally calcified extra-axial lesions. -Monitor orthostatic hypotension -Medication reconciliation # History of BRAIN tumor status post surgery -Brain tumor diagnosed 2002 status post surgery -Continue levetiracetam 750 mg b.i.d. -Continue risperidone 2 mg b.i.d. -Benztropine 1 mg p.o. daily # Essential hypertension --DASH diet -monitor blood pressure # COPD not on oxygen -current smoker ,pack per day # diet: Cardiac diet # GI prophylaxis: Pantoprazole 40 mg p.o. daily # DVT prophylaxis: Sequential compression device. Due to history of recent fall. # please call pharmacy for medication reconciliation. Goals of care discussion, more than 35 minute spent. Full code status Was discussed with Dr. Aleman Plan discussed with: Patient, Other (Nurse) Plan discussed with: Patient My Orders My Orders Orders - JOSE SEE RESIDENT Procedure Category Date Status Time * Juice Weigher CONS 03/15/25 Transmitted Consult Urine Bacterial JUANITO 03/15/25 In Process Culture 15:53 Complete Blood Count LAB 03/16/25 Verified 04:00 Basic Metabolic Panel LAB 03/16/25 Verified 04:00 Date of Service: Mar 15, 2025 Billing Provider: ANASTACIA WALLIS MD Common Visit Codes: [id number] INP/OBS CARE(HIGH) JOSE SEE RESIDENT Mar 15, 2025 17:26 ANASTACIA WALLIS MD Mar 22, 2025 02:21
[2025-03-16 06:10] LABS: Hematocrit 34.1 % (36.0-46.0); Hemoglobin 11.5 g/dL (12.2-16.2); Mean Corpuscular Hemoglobin 29.2 pg (28.0-32.0); Mean Corpuscular Volume 86.4 fL (80.0-100.0); Nucleated Red Blood Cells % 0.1 %
[2025-03-16 06:23] LABS: Calcium 8.9 mg/dL (8.7-10.4); Potassium 4.2 mmol/L (3.5-5.1); Sodium 145 mmol/L (136-145)
[2025-03-16 06:24] LABS: Anion Gap 6 (5-15); Carbon Dioxide 21 mmol/L (20-31)
[2025-03-16 06:27] LABS: Chloride 118 mmol/L (98-107)
[2025-03-16 06:29] LABS: BUN/Creatinine Ratio 14.4 (10.0-20.0); Glucose 91 mg/dL (74-106)
[2025-03-16 06:31] LABS: Blood Urea Nitrogen 25 mg/dL (9-23)
[2025-03-16 08:20] VITALS: RESP 15
[2025-03-16 08:46] LABS: Free T4 (Free Thyroxine) 1.37 ng/dL (0.89-1.76)
[2025-03-16 13:00] VITALS: BP 135/76; PULSE 70; RESP 17; TEMP 97.7; O2SAT 98
--- NOTE | 2025-03-16 15:01 | DVHPNRES ---
Progress Note Date Seen: Mar 16, 2025 Resident Creating Document: JOSE SEE RESIDENT Has the PT tested + for MRSA If YES, has PT been informed?: No Medical Necessity Reason Pt with a Central, PICC or Fol: No Subjective Review of Systems This is a 64-year-old female with past medical history of CKD, COPD Not on home oxygen, HTN came to ED with a complain of feeling dizziness associated with weakness for last 2 days but it was worsen since noon. Does not associated with nausea, vomiting, vertigo, chest pain, SOB, headache, muscle out and not associated any prodromal factors. As per ED physician, patient history of fall yesterday but not follow-up with ER her PCP. As per patient she had brain tumor diagnosed 2002 and surgery done in [facility]. Patient currently on bed and denies any acute symptoms. 03/15/25: Patient was seen at bedside, patient reports feeling better. Today, urine culture was sent due to positive UA. Also, ceftriaxone 1 gr was initiated. Patient will be follow up closely. 03/16/25 The patient was seen at bedside, patient reports feeling better, no fever, chills, no abdominal pain, she feels less dizzy, her weaknes has improved. Today, patient continues on ceftriaxone 1g. We will follow up this patient closely. Review of Systems Constitutional: Yes: Weakness; No: Fever, Chills, Sweats, Malaise, Other Eyes: No: Pain, Vision change, Conjunctivae inflammation, Eyelid inflammation, Other, Redness ENT: No: Ear pain, Ear discharge, Nose pain, Nose discharge, Nose congestion, Mouth pain, Mouth swelling, Throat pain, Throat swelling, Other Respiratory: No: Cough, Dry, Shortness of breath, SOB with excertion, Wheezing, Hemoptysis, Pleuritic Pain, Sputum, Wheezing, Other Cardiovascular: No: Chest Pain, Palpitations, Orthopnea, Paroxysmal Noc. Dyspnea, Edema, Lt Headedness, Other Gastrointestinal: No: Nausea, Vomiting, Abdominal Pain, Diarrhea, Constipation, Melena, Hematochezia, Other Genitourinary: No Dysuria, No Frequency, No Incontinence, No Hematuria, No Retention, No Other Musculoskeletal: No: other, neck pain, shoulder pain, arm pain, back pain, hand pain, leg pain, foot pain Skin: No: Rash, Lesions, Jaundice, Bruising, Other Neurological: No: Weakness, Numbness, Incoordination, Change in speech, Confusion, Seizures, Other Allergies: UNK Allergies Physical Exam General Appearance: Alert, Oriented X3 HEENT: Atraumatic, PERRLA Respiratory: Clear to auscultation Cardiovascular: Regular rate, Normal S1, Normal S2 Abdominal: Normal bowel sounds, Soft, No tenderness, No hepatospenomegaly Extremities: No clubbing, No cyanosis, No edema. Skin: No rashes, No breakdown Neuro: Normal speech, intact cranial nerves with no focal deficit. Objective vital signs Vital Sign Date Time Temp Pulse Resp B/P (MAP) Pulse Ox O2 Delivery O2 Flow Rate FiO2 03/16/25 13:00 97.7 70 17 135/76 (95) 98 97.7 03/16/25 08:20 Room Air* 0 21 Total Intake and Output 03/15/25 03/15/25 03/16/25 15:00 23:00 07:00 Intake Total 50 ml 550 ml 340 ml Balance 50 ml 550 ml 340 ml medications Current Medications Medications Dose Ordered Sig/Fela Route Start Time Stop Time Status Last Admin Dose Admin Morphine Sulfate 2 mg Q30M PRN IV 03/14/25 23:00 Nitroglycerin 0.4 mg Q5MINP PRN SL 03/14/25 23:00 Sodium Chloride 1,000 ml @ 100 mls/hr Q10H IV 03/15/25 01:45 03/16/25 09:39 100 MLS/HR Pantoprazole Sodium 40 mg DAILY@0600 PO 03/15/25 06:00 03/16/25 05:21 40 MG Risperidone 2 mg BID PO 03/15/25 10:00 03/16/25 09:39 2 MG Levetiracetam 750 mg BID PO 03/15/25 10:00 03/16/25 09:39 750 MG Benztropine Mesylate 1 mg DAILY PO 03/15/25 10:00 03/16/25 09:40 1 MG Ceftriaxone Sodium 50 ml @ 100 mls/hr DAILY@09 IV 03/15/25 09:45 03/16/25 09:38 100 MLS/HR laboratory and microbiology Laboratory Tests 03/16/25 05:27 Test 03/16/25 05:27 Range/Units Serum Glucose 91 74-106 mg/dL Microbiology Date/Time Source Procedure Growth Status 03/15/25 03:20 Voided Urine Urine Culture - Preliminary Resulted Problem List/Assessment/Plan Problem List/Assessment/Plan Assessment/Plan # JERROD due to severe dehydration, resolving -Patient came to ER with dizziness likely dehydration -Serum creatinine 1.74, baseline creatinine 1.87 -Calculated FENa 2.1 -Monitor BMP -Encourage oral hydration -Avoid nephrotoxic drugs. #Dehydratation -Continue 0.45 % NS @ 100 cc/hours -Encourage oral hydration #UTI -UA positive -Urine culture (pending report) -Ceftriaxone 1g IV #Dizziness rule out orthostatic hypotension, vasovagal. -Patient came to the ER with dizziness -CT HEAD W/o contrast : No acute intracranial abnormality. If symptoms persist or worsen, recommend MRI for further evaluation. Similar bifrontal craniotomy postsurgical changes and right frontal encephalomalacia. Unchanged peripherally calcified extra-axial lesions. -Monitor orthostatic hypotension -Medication reconciliation # History of BRAIN tumor status post surgery -Brain tumor diagnosed 2002 status post surgery -Continue levetiracetam 750 mg b.i.d. -Continue risperidone 2 mg b.i.d. -Benztropine 1 mg p.o. daily # Essential hypertension --DASH diet -monitor blood pressure # Chronic COPD, not on oxygen -current smoker ,pack per day # diet: Cardiac diet # GI prophylaxis: Pantoprazole 40 mg p.o. daily # DVT prophylaxis: Sequential compression device. Due to history of recent fall. # please call pharmacy for medication reconciliation. Goals of care discussion, more than 35 minute spent. Full code status Was discussed with Dr. Aleman Plan discussed with: Patient, Other (Nurse) Plan discussed with: Patient My Orders My Orders Orders - JOSE SEE RESIDENT Procedure Category Date Status Time Urine Bacterial JUANITO 03/15/25 In Process Culture 15:53 Dietary Evaluation Review Comments: 1) CCHO 60gm + renal special 40gm protein diet 2) Refer CDE on DC Expected Outcomes/Goals: To meet >75% estimated needs Fu 3-5 days Date of Service: Mar 16, 2025 Billing Provider: ANASTACIA WALLIS MD Common Visit Codes: [id number] INP/OBS CARE(HIGH) JOSE SEE RESIDENT Mar 16, 2025 15:01 ANASTACIA WALLIS MD Mar 22, 2025 02:28
[2025-03-16 16:42] VITALS: BP 131/71; PULSE 69; RESP 18; TEMP 98; O2SAT 99
[2025-03-16 20:00] VITALS: O2SAT 97
[2025-03-17 05:00] VITALS: BP 122/69; PULSE 58; RESP 18; TEMP 98.2; O2SAT 99
[2025-03-17 08:43] LABS: Hematocrit 35.9 % (36.0-46.0); Hemoglobin 11.9 g/dL (12.2-16.2); Mean Corpuscular Hemoglobin 28.5 pg (28.0-32.0); Mean Corpuscular Volume 86.2 fL (80.0-100.0); Nucleated Red Blood Cells % 0.0 %
[2025-03-17 08:57] LABS: Anion Gap 9 (5-15); Carbon Dioxide 22 mmol/L (20-31); Potassium 4.4 mmol/L (3.5-5.1)
[2025-03-17 08:59] LABS: Calcium 9.8 mg/dL (8.7-10.4)
[2025-03-17 09:03] LABS: BUN/Creatinine Ratio 12.7 (10.0-20.0); Blood Urea Nitrogen 22 mg/dL (9-23); Glucose 89 mg/dL (74-106)
[2025-03-17 09:06] LABS: Chloride 114 mmol/L (98-107); Sodium 145 mmol/L (136-145)
[2025-03-17 09:10] VITALS: BP 136/60; PULSE 51; RESP 16; TEMP 98.5; O2SAT 98
[2025-03-17] MEDS ORDERED: NITR-52 PO (13:21)
[2025-03-17 13:47] VITALS: BP 124/73; PULSE 64; RESP 16; TEMP 98.4; O2SAT 99
--- NOTE | 2025-03-17 15:58 | DVHDSRES ---
Discharge Summary Date of Admission Resident Creating Document: JOSE SEE RESIDENT Mar 14, 2025 at 22:42 Date of Discharge: Mar 17, 2025 Admitting Diagnosis # JERROD due to severe dehydration Labs/Diagnostic Data: Laboratory Results Test 03/17/25 07:50 03/16/25 05:27 03/15/25 06:29 03/15/25 03:20 White Blood Count 8.5 10^3/uL (4.4-10.8) Red Blood Count 4.17 10^6/uL (4.0-5.20) Hemoglobin 11.9 g/dL (12.2-16.2) Hematocrit 35.9 % (36.0-46.0) Mean Corpuscular Volume 86.2 fL (80.0-100.0) Mean Corpuscular Hemoglobin 28.5 pg (28.0-32.0) Mean Corpuscular Hemoglobin Concent 33.0 g/dL (32.0-36.0) Red Cell Distribution Width 13.7 % (11.8-14.3) Platelet Count 210 10^3/uL (140-450) Mean Platelet Volume 9.1 fL (6.9-10.8) Neutrophils (%) (Auto) 69.9 % (37.0-80.0) Lymphocytes (%) (Auto) 16.4 % (10.0-50.0) Monocytes (%) (Auto) 5.8 % (0.0-12.0) Eosinophils (%) (Auto) 7.7 % (0.0-7.0) Basophils (%) (Auto) 0.2 % (0.0-2.0) Neutrophils # (Auto) 5.9 10 ^3/uL (1.6-8.6) Lymphocytes # (Auto) 1.4 10 ^3/uL (0.4-5.4) Monocytes # (Auto) 0.5 10 ^3/uL (0-1.3) Eosinophils # (Auto) 0.7 10 ^3/uL (0-0.8) Basophils # (Auto) 0 10 ^3/uL (0-0.2) Nucleated Red Blood Cells 0.0 % Sodium Level 145 mmol/L (136-145) Potassium Level 4.4 mmol/L (3.5-5.1) Chloride Level 114 mmol/L (98-107) Carbon Dioxide Level 22 mmol/L (20-31) Anion Gap 9 (5-15) Blood Urea Nitrogen 22 mg/dL (9-23) Creatinine 1.73 mg/dL (0.550-1.02) Glomerular Filtration Rate Calc 32 mL/min (>90) BUN/Creatinine Ratio 12.7 (10.0-20.0) Serum Glucose 89 mg/dL (74-106) Calcium Level 9.8 mg/dL (8.7-10.4) Free Thyroxine (T4) Calculated 1.37 ng/dL (0.89-1.76) Total Triiodothyronine (TT3) 0.96 ng/mL (0.60-1.81) Hemoglobin A1c 5.8 % A1C (<5.7) Lactic Acid Level 1.4 mmol/L (0.4-2.0) Total Bilirubin 0.2 mg/dL (0.2-1.0) Aspartate Amino Transferase (AST) 23 U/L (13-40) Alanine Aminotransferase (ALT) < 9 U/L (7-40) Alkaline Phosphatase 73 U/L (46-116) B-Type Natriuretic Peptide 159.55 pg/mL (0-100) Total Protein 5.8 g/dL (5.7-8.2) Albumin 3.5 g/dL (3.2-4.8) Triglycerides Level 107 mg/dL (< 150) Cholesterol Level 88 mg/dL (< 200) LDL Cholesterol 46 mg/dL (< 100) HDL Cholesterol 31 mg/dL (40-59) Vitamin B12 Level 424 pg/mL (211-911) Vitamin D 25-Hydroxy 35.5 ng/mL (30.0-100) Folic Acid 19.40 ng/mL (>5.38) Thyroid Stimulating Hormone (TSH) 0.01 uIU/mL (0.55-4.78) Urine Creatinine 100.42 mg/dL (30.0-125.0) Urine Protein/Creatinine Ratio 0.21 Urine Sodium 86 mmol/L (40-220) Urine Total Protein 21.4 mg/dL (1-14) Test 03/14/25 16:21 03/14/25 13:17 Urine Color Light-yellow (Yellow) Urine Clarity Clear (Clear) Urine pH 5.0 (5.0-9.0) Urine Specific [place] 1.015 (1.001-1.035) Urine Protein Negative (Negative) Urine Ketones Negative (Negative) Urine Blood Negative /uL (Negative) Urine Nitrite Negative (Negative) Urine Bilirubin Negative (Negative) Urine Urobilinogen Normal mg/dL (Negative) Urine Leukocyte Esterase 3+ /uL (Negative) Urine RBC 3 /hpf (0 - 4) Urine Microscopic WBC 15 /HPF (0-5) Urine Squamous Epithelial Cells Few /hpf (<5) Urine Bacteria None seen /hpf (None Seen) Urine Hyaline Casts Few /lpf (0 - 2) Urine Mucus Few (None Seen) Urine Yeast (Budding) Occasional /hpf (None Urine Glucose Normal mg/dL (Normal) Prothrombin Time 10.8 sec (9.3-11.8) Prothrombin Time INR 1.02 (0.9-1.15) Activated Partial Thromboplast Time 27.5 SEC (24.5-34.5) Other Laboratory Tests 03/17/25 07:50 Brief Hx & Hospital Course: This is a 64-year-old female with past medical history of CKD, COPD Not on home oxygen, HTN came to ED with a complain of feeling dizziness associated with weakness for last 2 days but it was worsen since noon. Does not associated with nausea, vomiting, vertigo, chest pain, SOB, headache, muscle out and not associated any prodromal factors. As per ED physician, patient history of fall yesterday but not follow-up with ER her PCP. As per patient she had brain tumor diagnosed 2002 and surgery done in [facility]. Patient currently on bed and denies any acute symptoms. On 03/15/25: Patient was seen at bedside, patient reports feeling better. Today, urine culture was sent due to positive UA. Also, ceftriaxone 1 gr was initiated. Patient will be follow up closely. On 03/16/25 The patient was seen at bedside, patient reports feeling better, no fever, chills, no abdominal pain, she feels less dizzy, her weakness has improved. Today, patient continues on ceftriaxone 1g. We will follow up this patient closely. 03/17/25, today the patient reports feeling better, patient denies weakness, dizziness, nausea, vomit, fever or chills. The patient will be discharge today with Nitrofurantoin 100 mg po bid x 5 days. The patient will follow up with PCP Dr. Scott Wolf in 1 week. Review of Systems Constitutional: Yes: Weakness; No: Fever, Chills, Sweats, Malaise, Other Eyes: No: Pain, Vision change, Conjunctivae inflammation, Eyelid inflammation, Other, Redness ENT: No: Ear pain, Ear discharge, Nose pain, Nose discharge, Nose congestion, Mouth pain, Mouth swelling, Throat pain, Throat swelling, Other Respiratory: No: Cough, Dry, Shortness of breath, SOB with excertion, Wheezing, Hemoptysis, Pleuritic Pain, Sputum, Wheezing, Other Cardiovascular: No: Chest Pain, Palpitations, Orthopnea, Paroxysmal Noc. Dyspnea, Edema, Lt Headedness, Other Gastrointestinal: No: Nausea, Vomiting, Abdominal Pain, Diarrhea, Constipation, Melena, Hematochezia, Other Genitourinary: No Dysuria, No Frequency, No Incontinence, No Hematuria, No Retention, No Other Musculoskeletal: No: other, neck pain, shoulder pain, arm pain, back pain, hand pain, leg pain, foot pain Skin: No: Rash, Lesions, Jaundice, Bruising, Other Neurological: No: Weakness, Numbness, Incoordination, Change in speech, Confusion, Seizures, Other Allergies: UNK Allergies Physical Exam General Appearance: Alert, Oriented X3 HEENT: Atraumatic, PERRLA Respiratory: Clear to auscultation Cardiovascular: Regular rate, Normal S1, Normal S2 Abdominal: Normal bowel sounds, Soft, No tenderness, No hepatospenomegaly Extremities: No clubbing, No cyanosis, No edema. Skin: No rashes, No breakdown Neuro: Normal speech, intact cranial nerves with no focal deficit. Assessment/Plan # JERROD due to severe dehydration. -Patient came to ER with dizziness likely dehydration -Serum creatinine 1.73, baseline creatinine 1.87 -Calculated FENa 2.1 -Encourage oral hydration -Avoid nephrotoxic drugs. #Dehydratation -Encourage oral hydration #UTI -UA positive -Urine culture positive for: Gram + romana -Nifrourantoina 100 mg po bid for 5 days #Dizziness rule out orthostatic hypotension, vasovagal. -Resolved, encouraged hydration # History of BRAIN tumor status post surgery -Brain tumor diagnosed 2002 status post surgery -Continue levetiracetam 750 mg b.i.d. -Continue risperidone 2 mg b.i.d. # Essential hypertension --DASH diet -monitor blood pressure # Chronic COPD, not on oxygen -current smoker ,pack per day -F/U with PCP # diet: Cardiac diet Goals of care discussion, more than 35 minute spent. Full code status Was discussed with Dr. Aleman Plan discussed with: Patient, Other (Nurse) patient agrees with the plan PCP: Scott Hammond. Condition at Discharge: Stable Final Diagnosis/Problems List UTI JERROD due to severe dehydratation. Dehydratation Discharge Disposition: Home SNF Discharge Will this Physician continue t: No Discharge Instruct/Medications Diet: Regular Activity: No Restrictions, As Tolerated Follow Up/Referral: Follow up with pcp in 1 week. Medications: -Nitrofurantoin 100mg po bid for 5 days -Continue home medications Scheduled Docusate Sodium (Colace), 1 CAP PO BID, (Reported) Nitrofurantoin (Nitrofurantoin), 1 CAP PO BID Risperidone (Risperidone), 1 TAB PO QPM, (Reported) Scheduled PRN Ibuprofen (Ibuprofen), 1 TAB PO Q6HP PRN Discharge Statement: "Patient was advised to return to the ER or call 911 if any headaches, dizziness, shortness of breath, chest pain, abdominal pain, bleeding, fevers, or worsening of medical condition. Patient was counseled about treatment plan, medications, possible side effects, patientverbalized understanding. All questions were answered to the best of my ability. This discharge took greater then 30 minutes in planning, reviewing documentation, counseling the patient, and discussing with other team members." ASSESSMENT ASSESSMENT Assessment UTI JERROD due to severe dehydratation. Date of Service: Mar 17, 2025 Billing Provider: ANASTACIA WALLIS MD Common Visit Codes: [id number]/OBS DISCH DAY >30min JOSE SEE RESIDENT Mar 17, 2025 15:58 ANASTACIA WALLIS MD Mar 22, 2025 21:23
[2025-03-17 16:59] VITALS: BP 119/64; PULSE 67; RESP 17; TEMP 98.3; O2SAT 98
[2025-03-17 20:00] VITALS: O2SAT 97
[2025-03-17 21:00] VITALS: BP 122/72; PULSE 57; RESP 18; TEMP 98.4; O2SAT 95
[2025-03-18 01:00] VITALS: BP 120/66; PULSE 60; RESP 18; TEMP 98.8; O2SAT 97
[2025-03-18 05:00] VITALS: BP 126/70; PULSE 64; RESP 18; TEMP 98.6; O2SAT 95
[2025-03-18 09:00] VITALS: BP 124/72; PULSE 75; RESP 16; TEMP 98.2; O2SAT 100
--- NOTE | 2025-03-18 10:10 | DVHPNRES ---
Progress Note Date Seen: Mar 18, 2025 Resident Creating Document: JOSE SEE RESIDENT Has the PT tested + for MRSA If YES, has PT been informed?: No Medical Necessity Reason Pt with a Central, PICC or Fol: No Subjective Review of Systems This is a 64-year-old female with past medical history of CKD, COPD Not on home oxygen, HTN came to ED with a complain of feeling dizziness associated with weakness for last 2 days but it was worsen since noon. Does not associated with nausea, vomiting, vertigo, chest pain, SOB, headache, muscle out and not associated any prodromal factors. As per ED physician, patient history of fall yesterday but not follow-up with ER her PCP. As per patient she had brain tumor diagnosed 2002 and surgery done in [facility]. Patient currently on bed and denies any acute symptoms. On 03/15/25: Patient was seen at bedside, patient reports feeling better. Today, urine culture was sent due to positive UA. Also, ceftriaxone 1 gr was initiated. Patient will be follow up closely. On 03/16/25 The patient was seen at bedside, patient reports feeling better, no fever, chills, no abdominal pain, she feels less dizzy, her weakness has improved. Today, patient continues on ceftriaxone 1g. We will follow up this patient closely. 03/17/25, today the patient reports feeling better, patient denies weakness, dizziness, nausea, vomit, fever or chills. The patient will be discharge today with Nitrofurantoin 100 mg po bid x 5 days. The patient will follow up with PCP Dr. Scott Wolf in 1 week. 03/18/25, today the patient reports feeling better, patient denies weakness, dizziness, nausea, vomit, fever or chills. The patient will be discharge today with Nitrofurantoin 100 mg po bid x 5 days. The patient will follow up with PCP Dr. Scott Wolf in 1 week. Review of Systems Constitutional: Yes: Weakness; No: Fever, Chills, Sweats, Malaise, Other Eyes: No: Pain, Vision change, Conjunctivae inflammation, Eyelid inflammation, Other, Redness ENT: No: Ear pain, Ear discharge, Nose pain, Nose discharge, Nose congestion, Mouth pain, Mouth swelling, Throat pain, Throat swelling, Other Respiratory: No: Cough, Dry, Shortness of breath, SOB with excertion, Wheezing, Hemoptysis, Pleuritic Pain, Sputum, Wheezing, Other Cardiovascular: No: Chest Pain, Palpitations, Orthopnea, Paroxysmal Noc. Dyspnea, Edema, Lt Headedness, Other Gastrointestinal: No: Nausea, Vomiting, Abdominal Pain, Diarrhea, Constipation, Melena, Hematochezia, Other Genitourinary: No Dysuria, No Frequency, No Incontinence, No Hematuria, No Retention, No Other Musculoskeletal: No: other, neck pain, shoulder pain, arm pain, back pain, hand pain, leg pain, foot pain Skin: No: Rash, Lesions, Jaundice, Bruising, Other Neurological: No: Weakness, Numbness, Incoordination, Change in speech, Confusion, Seizures, Other Allergies: UNK Allergies Objective vital signs Vital Sign Date Time Temp Pulse Resp B/P (MAP) Pulse Ox O2 Delivery O2 Flow Rate FiO2 03/18/25 09:00 98.2 75 16 124/72 (89) 100 98.2 03/17/25 20:00 Room Air* 0 21 Total Intake and Output 03/17/25 03/17/25 03/18/25 15:00 23:00 07:00 Intake Total 750 ml 200 ml 0 ml Balance 750 ml 200 ml 0 ml medications Current Medications Medications Dose Ordered Sig/Fela Route Start Time Stop Time Status Last Admin Dose Admin Morphine Sulfate 2 mg Q30M PRN IV 03/14/25 23:00 Nitroglycerin 0.4 mg Q5MINP PRN SL 03/14/25 23:00 Sodium Chloride 1,000 ml @ 100 mls/hr Q10H IV 03/15/25 01:45 03/17/25 05:38 100 MLS/HR Pantoprazole Sodium 40 mg DAILY@0600 PO 03/15/25 06:00 03/18/25 05:48 40 MG Risperidone 2 mg BID PO 03/15/25 10:00 03/18/25 09:10 2 MG Levetiracetam 750 mg BID PO 03/15/25 10:00 03/18/25 09:30 750 MG Benztropine Mesylate 1 mg DAILY PO 03/15/25 10:00 03/18/25 09:11 1 MG Ceftriaxone Sodium 50 ml @ 100 mls/hr DAILY@09 IV 03/15/25 09:45 03/17/25 09:17 100 MLS/HR Examination Physical Exam General Appearance: Alert, Oriented X3 HEENT: Atraumatic, PERRLA Respiratory: Clear to auscultation Cardiovascular: Regular rate, Normal S1, Normal S2 Abdominal: Normal bowel sounds, Soft, No tenderness, No hepatospenomegaly Extremities: No clubbing, No cyanosis, No edema. Skin: No rashes, No breakdown Neuro: Normal speech, intact cranial nerves with no focal deficit. laboratory and microbiology Laboratory Tests 03/17/25 07:50 Test 03/17/25 07:50 Range/Units Serum Glucose 89 74-106 mg/dL Microbiology Date/Time Source Procedure Growth Status 03/15/25 03:20 Voided Urine Urine Culture - Final Complete Problem List/Assessment/Plan Problem List/Assessment/Plan Assessment/Plan # JERROD due to severe dehydration. -Patient came to ER with dizziness likely dehydration -Serum creatinine 1.73, baseline creatinine 1.87 -Calculated FENa 2.1 -Encourage oral hydration -Avoid nephrotoxic drugs. #Dehydratation -Encourage oral hydration #UTI -UA positive -Urine culture positive for: Gram + romana -Nifrourantoina 100 mg po bid for 5 days #Dizziness rule out orthostatic hypotension, vasovagal. -Resolved, encouraged hydration # History of BRAIN tumor status post surgery -Brain tumor diagnosed 2002 status post surgery -Continue levetiracetam 750 mg b.i.d. -Continue risperidone 2 mg b.i.d. # Essential hypertension --DASH diet -monitor blood pressure # Chronic COPD, not on oxygen -current smoker ,pack per day -F/U with PCP # diet: Cardiac diet #Discharge home -Continue home medications -Nifrourantoina 100 mg po bid for 5 days -F/U with PCP Dr. Kymberly Wolf in 1 week -continue oral hydration Plan discussed with: Patient My Orders My Orders Orders - JOSE SEE Procedure Category Date Status Time Discharge DISCHARGE 03/17/25 Transmitted 14:39 Dietary Evaluation Review Comments: 1) CCHO 60gm + renal special 40gm protein diet 2) Refer CDE on DC Expected Outcomes/Goals: To meet >75% estimated needs Fu 3-5 days Date of Service: Mar 18, 2025 Billing Provider: ANASTACIA WALLIS MD Common Visit Codes: [id number] INP/OBS CARE(HIGH) JOSE SEE RESIDENT Mar 18, 2025 10:10 ANASTACIA WALLIS MD Mar 22, 2025 01:08
--- NOTE | 2025-03-18 12:03 | ECG ---
[facility] Test Date: 2025-03-14 Test Time: 12:45:55 Pat Name: JAMARCUS MENDOZA Department: ER Room: 0295 B Gender: F Manager Building: [facility] : 1960 Requested By: DELGADO WHITFIELD Order Number: [id number] Reading MD: Romaine Hardwick Measurements Intervals [place] Rate: 73 P: -1 [place]: 115 QRS: 40 QRSD: 84 T: 39 QT: 419 QTc: 462 Interpretive Statements Sinus rhythm Borderline short [place] interval Probable anteroseptal infarct, old Baseline wander in lead(s) III,aVF Electronically Signed On 03-18-2025 18:53:28 PDT by Romaine Hardwick Please click the below link to view image of tracing.
[2025-03-18 13:00] VITALS: BP 111/63; PULSE 60; RESP 18; TEMP 98.2; O2SAT 98
== END 2025-03-18 15:24 | disposition home or self-care (01) | DRG 640 ==
LOC: ER 12:29 → OVERFLOW 22:42 → ER 22:42 → WEST WING 22:42
PROVIDERS: ADMIT Student in an Organized Health Care Education/Training Program; ATTEND Emergency Medicine
DX: E86.0 Dehydration (principal); N17.0 Acute kidney failure with tubular necrosis; N39.0 Urinary tract infection, site not specified; G93.89 Other specified disorders of brain; G90.9 Disorder of the autonomic nervous system, unspecified; J44.9 Chronic obstructive pulmonary disease, unspecified; N18.9 Chronic kidney disease, unspecified; I12.9 Hypertensive chronic kidney disease with stage 1 through stage 4 chronic kidney disease, or unspecified chronic kidney disease; I95.1 Orthostatic hypotension; F17.210 Nicotine dependence, cigarettes, uncomplicated
CPT/HCPCS: 36415; 70450; 71045; 80048; 80053; 80061; 81001; 82306; 82570; 82607; 82746; 83036; 83605; 83880; 84156; 84300; 84439; 84443; 84480; 85025; 85610; 85730; 87086; 93005; G0378